=== PATIENT | female | born 1945 | race Caucasian/White ===

== ENCOUNTER 2017-08-06 16:01 | Outpatient (CLI) | payer MEDICARE, BC | END 2017-08-06 16:02 | disposition home or self-care (01) | LOC: BICRAD 16:01 | PROVIDERS: ATTEND Specialist | DX: R05 Cough (principal); R06.02 Shortness of breath | CPT/HCPCS: 71046 ==

== ENCOUNTER 2017-08-11 08:02 | Outpatient (CLI) | payer MEDICARE, BC | END 2017-08-11 08:03 | disposition home or self-care (01) | LOC: BICMAMMO 08:02 | PROVIDERS: ATTEND Specialist | DX: Z12.31 Encounter for screening mammogram for malignant neoplasm of breast (principal); M81.0 Age-related osteoporosis without current pathological fracture; M85.80 Other specified disorders of bone density and structure, unspecified site; Z80.3 Family history of malignant neoplasm of breast | CPT/HCPCS: 77063; 77067; 77080 ==

== ENCOUNTER 2017-08-13 09:55 | Day surgery (SDC) | payer MEDICARE, BC ==
[2017-08-12 15:14] VITALS: BMI 29.2
[2017-08-13] MEDS ORDERED: PROPOFOL 200 MG/20 ML VIAL ONE (15:58)
[2017-08-13] MEDS ORDERED: Lidocaine 1% PF 5 ML VIAL ONE (15:58)
--- NOTE | 2017-08-14 00:31 | OP ---
DATE OF PROCEDURE: 08/13/2017 PROCEDURE: Esophagogastroduodenoscopy. SURGEON: Shaan Carranza M.D. MEDICATION GIVEN: Given by Anesthesiology Department. PREOPERATIVE DIAGNOSES: 1. History of a fundoplication in 1999 for severe GE reflux. 2. Persistent dyspnea. 3. Periodic infrequent dysphagia. 4. Worsening reflux. POSTOPERATIVE DIAGNOSES: 1. Slipped and undo fundoplication, the Z-line located at 38 cm. 2. Normal esophageal lumen. 3. Normal gastric and duodenal exam. PROCEDURE IN DETAIL: Written consent was obtained prior to procedure. After adequate sedation, the forward-viewing endoscope was advanced down the stomach through the pylorus into duodenum. Both the second portion and the bulb appeared normal. The pylorus was patent. The gastric antrum, body, fund us, and cardia all appeared normal. Retroflexion performed showed a slipped fundoplication that is n ot intact. There is a herniation of the wrap upward. The Z-line was located at 38 cm from the incis ors. The mucosal lining appeared normal without any mucosal abnormality. The instrument was then fu lly removed. Patient tolerated the procedure well. ASSESSMENT: 1. Slipped fundoplication, wrapped, was not intact. 2. Otherwise normal upper endoscopy. RECOMMENDATIONS: 1. Pulmonary evaluation to exclude any intrinsic pulmonary issue. 2. We will likely need redo fundoplication if pulmonary evaluation is negative. 3. Continue pantoprazole 40 mg b.i.d. and follow antireflux measures.
== END 2017-08-13 12:44 | disposition home or self-care (01) ==
LOC: SDC 09:55
PROVIDERS: ATTEND Internal Medicine Gastroenterology
PROC: 0DJ08ZZ Inspection of Upper Intestinal Tract, Via Natural or Artificial Opening Endoscopic (ICD-10-PCS; principal; 2017-08-13)
DX: K91.89 Other postprocedural complications and disorders of digestive system (principal); K21.9 Gastro-esophageal reflux disease without esophagitis; E78.5 Hyperlipidemia, unspecified; D86.0 Sarcoidosis of lung; G47.30 Sleep apnea, unspecified; K57.90 Diverticulosis of intestine, part unspecified, without perforation or abscess without bleeding; E03.9 Hypothyroidism, unspecified; Z90.710 Acquired absence of both cervix and uterus; Z79.810 Long term (current) use of selective estrogen receptor modulators (SERMs); Z79.899 Other long term (current) drug therapy; Z87.19 Personal history of other diseases of the digestive system; Z85.43 Personal history of malignant neoplasm of ovary; Z90.722 Acquired absence of ovaries, bilateral; Z90.49 Acquired absence of other specified parts of digestive tract; Z98.890 Other specified postprocedural states
CPT/HCPCS: J2001; J2704

== ENCOUNTER 2017-08-28 09:22 | Outpatient (CLI) | payer MEDICARE, BC ==
--- NOTE | 2017-08-28 12:08 | RAD ---
UPPER GI: Date: 08-28-17 History: Gastroesophageal reflux without esophagitis. Patient reports history of prior fundoplication procedure. FINDINGS: [employer] AP abdomen demonstrate surgical clips overlying the right upper quadrant. Bowel gas pattern is nonspecific. Degenerative changes are seen in the lower lumbar spine. UPPER GI: A single contrast upper GI was performed. The esophagus is normal in caliber without evidence of a fo rodri areas of narrowing or mucosal irregularity. There are tertiary contractions seen within the esoph tex, probably involving the mid and distal esophagus. There is irregularity involving the fundus of the stomach, likely related to patient's history of pos t-surgical change and probable fundoplication type procedure. There is suggestion of a very small hia juan pablo hernia present. No gastroesophageal reflux is demonstrated during this exam. The stomach is incom pletely distended but has a normal appearance. There is evidence of pylorus spasm during the exam. Th e duodenal bulb, duodenum and proximal visualized small bowel have a normal appearance. IMPRESSION: 1. Irregularity in the region of the fundus of the stomach, probably related to patient's history of prior fundoplication procedure. Some of the images do demonstrate what appears to be a very small hia juan pablo hernia. No gastroesophageal reflux was demonstrated during this exam. 2. Tertiary contractions within the esophagus. POS: [facility]
== END 2017-08-28 09:23 | disposition home or self-care (01) ==
LOC: RAD 09:22
PROVIDERS: ATTEND Specialist
DX: K21.9 Gastro-esophageal reflux disease without esophagitis (principal); K22.8 Other specified diseases of esophagus
CPT/HCPCS: 74241

== ENCOUNTER → 2017-09-04 | Day surgery (SDC) | payer MEDICARE, BC | LOC: ENDO/OP 07:08 | PROVIDERS: ATTEND Specialist | DX: K21.9 Gastro-esophageal reflux disease without esophagitis (principal) | CPT/HCPCS: 91010; 91034 ==

== ENCOUNTER 2017-09-11 08:31 | Outpatient (CLI) | payer MEDICARE, BC ==
--- NOTE | 2017-09-11 12:11 | CT ---
CT ABDOMEN AND PELVIS WITH IV AND ORAL CONTRAST: HISTORY: Abdominal pain. Reflux. FINDINGS: There is mild parenchymal scarring at the lung bases. Small hiatal hernia. Gallbladder is surgicall y absent. Calcification throughout the arterial structures. Spleen, kidneys, adrenal glands, and pa ncreas are unremarkable. Degenerative changes lumbar spine. Nondistention of the transverse colon. Scattered diverticula without adjacent inflammation. Urinary bladder is unremarkable. IMPRESSION: 1. Small hiatal hernia. 2. Atherosclerosis. 3. Diverticulosis. No evidence of diverticulitis. POS: [facility]
== END 2017-09-11 08:32 | disposition home or self-care (01) ==
LOC: CT 08:31
PROVIDERS: ATTEND Specialist
DX: K21.9 Gastro-esophageal reflux disease without esophagitis (principal); K44.9 Diaphragmatic hernia without obstruction or gangrene; I70.90 Unspecified atherosclerosis; K57.90 Diverticulosis of intestine, part unspecified, without perforation or abscess without bleeding
CPT/HCPCS: 74177; 82565

== ENCOUNTER 2018-06-09 08:25 | Outpatient (CLI) | payer MEDICARE, BC ==
--- NOTE | 2018-06-11 14:45 | PFT ---
PATIENT HISTORY: HEIGHT: 68 IN WEIGHT: 194 SMOKER: NEVER HOW LONG: NA PACKS PER DAY PRODUCTIVE COUGH: LUNG DISEASE: PHYSICIAN INTERPRETATION FINAL REPORT: Patient had good effort and cooperation. PFT data: FVC 2.37 (71%), FEV1 1.78 (70%) FEV1/FVC 0.75 DLCO 24.32 (99%) There is a symmetric reduction to the FEV1 and the FVC. The ratio is suggestive of a restrictive profile. The expiratory limb of the flow volume loop does not demonstrate any significant scooping. The inspiratory limb is normal. Diffusion capacity fall comfortably within the normal limits. IMPRESSION: Compared to March 2016, there has been no significant change in spirometry values, and a significant improvement in diffusion capacity. Asphalt Coater: Tooling Mechanic: FRANKIE NUNEZ
== END 2018-06-09 08:26 | disposition home or self-care (01) ==
LOC: CP 08:25
PROVIDERS: ATTEND Internal Medicine
DX: D86.9 Sarcoidosis, unspecified (principal); G47.33 Obstructive sleep apnea (adult) (pediatric); K21.9 Gastro-esophageal reflux disease without esophagitis
CPT/HCPCS: 94010; 94729

== ENCOUNTER 2018-08-12 07:53 | Outpatient (CLI) | payer MEDICARE, BC | END 2018-08-12 07:54 | disposition home or self-care (01) | LOC: BICMAMMO 07:53 | PROVIDERS: ATTEND Specialist | DX: Z12.31 Encounter for screening mammogram for malignant neoplasm of breast (principal); R92.1 Mammographic calcification found on diagnostic imaging of breast; Z80.3 Family history of malignant neoplasm of breast; Z85.43 Personal history of malignant neoplasm of ovary | CPT/HCPCS: 77063; 77067 ==

== ENCOUNTER 2019-08-13 07:55 | Outpatient (CLI) | payer MEDICARE, BC ==
--- NOTE | 2019-08-13 11:23 | BD ---
BONE DENSITOMETRY USING DEXA: HISTORY: Postmenopausal screening for osteoporosis. Age-related osteoporosis without current pathological fra cture. FINDINGS: Lumbar Spine: BMD (g/cm2) L1 0.914 T-Score: -0.7 Z-Score: 1.5 L2 0.817 T-Score: -1.9 Z-Score: 0.5 L3 0.855 T-Score: -2.1 Z-Score: 0.4 L4 1.000 T-Score: -0.6 Z-Score: 2.0 L1-L4 0.903 T-Score: -1.3 Z-Score: 1.1 RIGHT HIP: Femoral Neck: 0.633 T-Score: -1.9 Z-Score: 0.2 Total Femur: 0.762 T-Score: -1.5 Z-Score: 0.3 LEFT HIP: Femoral Neck: 0.653 T-Score: -1.8 Z-Score: 0.3 Total Femur: 0.776 T-Score: -1.4 Z-Score: 0.4 The 10-year fracture risk for a major osteoporotic fracture is 13% and for a hip fracture is 3.3%. Impression: Osteopenia. POS: [facility]
--- NOTE | 2019-08-13 12:03 | MMO ---
Bilateral MAMMO Bilat Screen [facility]. CLINICAL HISTORY: Patient is 74 years old and is seen for screening. The patient has the following family history of breast cancer: mother, malignant (generic). The patient has no personal history of cancer. VIEWS: The views performed were: bilateral craniocaudal with tomosynthesis and bilateral mediolateral oblique with tomosynthesis. FILMS COMPARED: The present examination has been compared to prior imaging studies performed at [facility] on 08/07/2015, 08/09/2016, 08/11/2017 and 08/12/2018. This study has been interpreted with the assistance of computer-aided detection. MAMMOGRAM FINDINGS: There are scattered fibroglandular densities. There are benign appearing calcifications seen in both breasts. There are no suspicious masses, calcifications or areas of architectural distortion. There are no suspicious masses, suspicious calcifications, or new areas of architectural distortion. IMPRESSION: THERE IS NO MAMMOGRAPHIC EVIDENCE OF MALIGNANCY. A ROUTINE FOLLOW-UP MAMMOGRAM IN 1 YEAR IS RECOMMENDED. THE RESULTS OF THIS EXAM WERE SENT TO THE PATIENT. ACR BI-RADS Category 2 - Benign finding MAMMOGRAPHY NOTE: 1. A negative mammogram report should not delay a biopsy if a dominant of clinically suspicious mass is present. 2. Approximately 10% to 15% of breast cancers are not detected by mammography. 3. Adenosis and dense breasts may obscure an underlying neoplasm. Reported by: VIRGIL RESENDIZ MD Electonically Signed: [id number]
== END 2019-08-13 07:56 | disposition home or self-care (01) ==
LOC: BICMAMMO 07:55
PROVIDERS: ATTEND Specialist
DX: Z12.31 Encounter for screening mammogram for malignant neoplasm of breast (principal); M81.0 Age-related osteoporosis without current pathological fracture; M85.89 Other specified disorders of bone density and structure, multiple sites; Z80.3 Family history of malignant neoplasm of breast
CPT/HCPCS: 77063; 77067; 77080

== ENCOUNTER 2020-06-14 11:11 | Outpatient (CLI) | payer MEDICARE, BC ==
--- NOTE | 2020-06-14 11:57 | RAD ---
EXAM: XR Thoracic Spine 3 V STANDARD PROVIDED CLINICAL HISTORY: Osteochondrosis of spine, thoracic region. COMPARISON: None FINDINGS: Upper thoracic spine is partially obscured on the lateral view due to overlying osseous structures. H owever, the thoracic vertebral bodies do appear to be within normal limits. No fracture or subluxation is appreciated. There is slight left convex curvature of the thoracic spine. Vascular calcifications are seen in the thoracic aorta. Degenerative changes are seen in the visualiz ed imaged portions of the cervical spine. Surgical clips overlie the right upper quadrant. IMPRESSION: Mild degenerative changes thoracic spine without acute osseous abnormality appreciated.
--- NOTE | 2020-06-14 13:43 | RAD ---
CERVICAL SPINE: 06/14/20 Three views. HISTORY: Cervical pain. Osteochondrosis of spine is listed as reason for exam. FINDINGS: Cervical vertebrae maintain normal height and alignment. The disc spaces are preserved. Mild degenera tive spurring. Moderate facet hypertrophy. IMPRESSION: There are mild degenerative changes of the cervical spine. No acute process. POS: [facility]
== END 2020-06-14 11:12 | disposition home or self-care (01) ==
LOC: BICRAD 11:11
PROVIDERS: ATTEND Specialist
DX: M42.12 Adult osteochondrosis of spine, cervical region (principal); M42.04 Juvenile osteochondrosis of spine, thoracic region; M54.2 Cervicalgia; M54.6 Pain in thoracic spine; M47.812 Spondylosis without myelopathy or radiculopathy, cervical region; M47.814 Spondylosis without myelopathy or radiculopathy, thoracic region
CPT/HCPCS: 72040; 72072

== ENCOUNTER 2021-04-03 09:37 | Outpatient (CLI) | payer MEDICARE, BC | END 2021-04-03 09:38 | disposition home or self-care (01) | LOC: BICRAD 09:37 | PROVIDERS: ATTEND Internal Medicine Critical Care Medicine | DX: R06.09 Other forms of dyspnea (principal) | CPT/HCPCS: 71046 ==

== ENCOUNTER 2021-08-24 08:21 | Outpatient (CLI) | payer MEDICARE, BC | END 2021-08-24 08:22 | disposition home or self-care (01) | LOC: BICMAMMO 08:21 | PROVIDERS: ATTEND Specialist | DX: Z12.31 Encounter for screening mammogram for malignant neoplasm of breast (principal); M81.0 Age-related osteoporosis without current pathological fracture; M85.89 Other specified disorders of bone density and structure, multiple sites; Z80.3 Family history of malignant neoplasm of breast | CPT/HCPCS: 77063; 77067; 77080 ==

== ENCOUNTER 2022-04-02 09:09 | Outpatient (CLI) | payer MEDICARE, BC | END 2022-04-02 09:10 | disposition home or self-care (01) | LOC: RAD 09:09 | PROVIDERS: ATTEND Internal Medicine Critical Care Medicine | DX: R06.09 Other forms of dyspnea (principal); R91.8 Other nonspecific abnormal finding of lung field; J98.4 Other disorders of lung | CPT/HCPCS: 71046 ==

== ENCOUNTER 2022-09-10 05:54 | Observation (INO) | payer MEDICARE, BC ==
[2022-09-10 07:32] LABS: #Eosinphils 0.1 thou/uL (0.0-0.7); #Monocytes 0.6 thou/uL (0.11-0.59); #Neutrophils 9.9 thou/uL (1.40-6.50); %Basophils 0.4 % (0.0-1.0); %Eosinophils 1.1 % (0.0-10.0); %Lymphocytes 8.9 % (21.0-51.0); %Monocytes 4.7 % (0.0-10.0); %Neutrophils 84.9 % (42.0-75.0); Hemoglobin 15.9 g/dL (12.0-16.0); Mean Corpuscular HGB CONC 33.5 g/dL (32.0-36.0); Mean Corpuscular Volume 92.4 fl (78.0-98.0); Mean Platelet Volume 8.3 fL (7.4-10.4); Platelet Count 190 10x3/uL (130-400); RBC Distribution Width 12.1 % (11.5-14.5); Red Blood Cell (RBC) Count 5.13 mill/uL (4.20-5.40); White Blood Cell (WBC) Count 11.6 10x3/uL (4.8-10.8)
[2022-09-10 07:46] LABS: INR-International Normal Ratio 0.9; PTT 23.3 sec (22.9-36.1); Prothrombin Time 12.3 sec (12.0-14.7)
[2022-09-10 07:51] LABS: ALT (SGPT) 13 U/L (8-55); AST (SGOT) 16 U/L (5-34); Albumin 4.1 g/dL (3.4-4.8); Alkaline Phosphatase 61 U/L (40-110); Anion Gap 14 mmol/L (10-20); BUN (Urea Nitrogen) 13 mg/dL (9.8-20.1); Bilirubin, Total 0.5 mg/dL (0.2-1.2); CK (CPK) 20 U/L (29-168); Calc. Creatinine Clearance 0 mL/min (70-130); Calcium 10.2 mg/dL (7.8-10.44); Carbon Dioxide 29 mmol/L (23-31); Chloride 102 mmol/L (98-107); Estimated GFR 79; Globulin 2.9 g/dL (2.4-3.5); Glucose 117 mg/dL (83-110); Potassium 4.6 mmol/L (3.5-5.1); Sodium 140 mmol/L (136-145)
[2022-09-10] MEDS ORDERED: Aspirin Chewable 81 MG TAB ONE (08:07)
[2022-09-10] MEDS ORDERED: Diazepam 10 MG/2 ML SYRINGE ONE (08:14)
[2022-09-10 09:31] LABS: Bilirubin Negative (Negative); Blood, Urine Negative (Negative); Clarity Clear (Clear); Glucose, Urine (Dipstick) Normal (Negative); Ketone, Urine Negative (Negative); Leukocyte Negative Leu/uL (Negative); Nitrite Negative (Negative); Protein, Urine (Dipstick) Negative (Neg-Trace); Specific Gravity, Urine 1.015 (1.002-1.036); Urobilinogen Normal mg/dL (Less than 2)
[2022-09-10 14:17] VITALS: BMI 23.8
[2022-09-10] MEDS ORDERED: Zolpidem Tartrate 5 MG TAB PO PRN (16:48)
[2022-09-10] MEDS ORDERED: Ondansetron PF 4 MG/2 ML Vial IVP PRN (16:48)
[2022-09-10] MEDS ORDERED: Acetaminophen 325 MG TAB PO PRN (16:48)
[2022-09-10] MEDS ORDERED: Meclizine HCl 12.5 MG TAB PO PRN (17:05)
[2022-09-11 06:20] LABS: #Eosinphils 0.2 thou/uL (0.0-0.7); #Monocytes 0.4 thou/uL (0.11-0.59); #Neutrophils 4.6 thou/uL (1.40-6.50); %Basophils 0.6 % (0.0-1.0); %Eosinophils 2.5 % (0.0-10.0); %Lymphocytes 27.7 % (21.0-51.0); %Monocytes 5.1 % (0.0-10.0); %Neutrophils 64.1 % (42.0-75.0); Hemoglobin 14.4 g/dL (12.0-16.0); Mean Corpuscular HGB CONC 33.3 g/dL (32.0-36.0); Mean Corpuscular Hemoglobin 30.9 pg (27.0-31.0); Mean Corpuscular Volume 92.7 fl (78.0-98.0); Mean Platelet Volume 8.6 fL (7.4-10.4); Platelet Count 170 10x3/uL (130-400); RBC Distribution Width 12.2 % (11.5-14.5); Red Blood Cell (RBC) Count 4.67 mill/uL (4.20-5.40); White Blood Cell (WBC) Count 7.1 10x3/uL (4.8-10.8)
[2022-09-11 06:48] LABS: Anion Gap 12 mmol/L (10-20); BUN (Urea Nitrogen) 13 mg/dL (9.8-20.1); Calc. Creatinine Clearance 70 mL/min (70-130); Calcium 8.9 mg/dL (7.8-10.44); Carbon Dioxide 25 mmol/L (23-31); Chloride 106 mmol/L (98-107); Cholesterol 175 mg/dl (< 200 Desired); Estimated GFR 86; Glucose 91 mg/dL (83-110); HDL Cholesterol 44 mg/dL (>60 Neg Risk); LDL Cholesterol, Calculated 110 mg/dL; Potassium 4.2 mmol/L (3.5-5.1); Sodium 139 mmol/L (136-145); Triglycerides 103 mg/dL (Less than 150)
[2022-09-11 12:09] VITALS: BP 112/57; TEMP 97.2
== END 2022-09-11 15:45 | disposition home or self-care (01) ==
LOC: ERS 05:54 → ERHOLD 09:48 → NEURO 13:44
PROVIDERS: ADMIT Internal Medicine; ATTEND Internal Medicine
DX: R42 Dizziness and giddiness (principal); E03.9 Hypothyroidism, unspecified; E78.5 Hyperlipidemia, unspecified; I12.9 Hypertensive chronic kidney disease with stage 1 through stage 4 chronic kidney disease, or unspecified chronic kidney disease; N18.2 Chronic kidney disease, stage 2 (mild); K21.9 Gastro-esophageal reflux disease without esophagitis; M81.0 Age-related osteoporosis without current pathological fracture; Z85.43 Personal history of malignant neoplasm of ovary; Z79.890 Hormone replacement therapy; Z79.899 Other long term (current) drug therapy; Z20.822 Contact with and (suspected) exposure to COVID-19
CPT/HCPCS: 70450; 70551; 71045; 80048; 80053; 80061; 81003; 82550; 84443; 84484; 85025 ×2; 85610; 85652; 85730; 86140; 93005; 93880; 96360; 99285; G0378 ×3; U0003; U0005; 36415; J3360

== ENCOUNTER 2022-09-26 11:57 | Outpatient (CLI) | payer MEDICARE, BC | END 2022-09-26 11:58 | disposition home or self-care (01) | LOC: BICMAMMO 11:57 | PROVIDERS: ATTEND Specialist | DX: Z12.31 Encounter for screening mammogram for malignant neoplasm of breast (principal); R92.1 Mammographic calcification found on diagnostic imaging of breast; Z91.89 Other specified personal risk factors, not elsewhere classified; Z80.3 Family history of malignant neoplasm of breast | CPT/HCPCS: 77063; 77067 ==

== ENCOUNTER 2023-04-02 11:27 | Outpatient (CLI) | payer MEDICARE, BC | END 2023-04-02 11:28 | disposition home or self-care (01) | LOC: BICRAD 11:27 | PROVIDERS: ATTEND Internal Medicine Critical Care Medicine | DX: R06.09 Other forms of dyspnea (principal); J98.4 Other disorders of lung | CPT/HCPCS: 71046 ==

== ENCOUNTER 2023-07-25 08:35 | Outpatient (CLI) | payer MEDICARE, BC | END 2023-07-25 08:36 | disposition home or self-care (01) | LOC: RAD 08:35 | PROVIDERS: ATTEND Internal Medicine Critical Care Medicine | DX: R06.00 Dyspnea, unspecified (principal) | CPT/HCPCS: 71046 ==

== ENCOUNTER 2023-08-27 08:52 | Outpatient (CLI) | payer MEDICARE, BC | END 2023-08-27 08:53 | disposition home or self-care (01) | LOC: BICMAMMO 08:52 | PROVIDERS: ATTEND Internal Medicine Rheumatology | DX: M81.0 Age-related osteoporosis without current pathological fracture (principal); M85.89 Other specified disorders of bone density and structure, multiple sites | CPT/HCPCS: 77080 ==